=== PATIENT | male | born 1980 | race Caucasian/White ===

== ENCOUNTER 2024-06-05 17:16 | Emergency (ER) | payer MEDICAID ==
[~2024-06-05] VITALS: Ht 185.4 cm; Wt 100.0 kg
[2024-06-05 17:36] VITALS: BP 119/84; PULSE 69; RESP 16; TEMP 97.7; O2SAT 96
== END 2024-06-05 19:55 | disposition home or self-care (01) ==
LOC: ER 17:19
DX: S00.531A Contusion of lip, initial encounter (principal); K13.79 Other lesions of oral mucosa; W20.8XXA Other cause of strike by thrown, projected or falling object, initial encounter; Y93.89 Activity, other specified; Y92.89 Other specified places as the place of occurrence of the external cause; Y99.8 Other external cause status
CPT/HCPCS: 99282